=== PATIENT | female | born 1970 | race Two or more races ===

== ENCOUNTER 2024-10-19 07:13 | Emergency (ER) | payer OTHER ==
[~2024-10-19] VITALS: Ht 167.6 cm; Wt 64.4 kg
[2024-10-19] MEDS ORDERED: METHYLPREDNISOLONE SOD SUCC 40 MG VIAL ONE (09:29)
[2024-10-19] MEDS ORDERED: CEFTRIAXONE SODIUM 1,000 MG VIAL ONE (09:29)
[2024-10-19] MEDS ORDERED: FAMOTIDINE/PF 20 MG/2 ML VIAL ONE (09:29)
[2024-10-19 11:03] LABS: HEMATOCRIT 35.4 % (36.0-45.00); HEMOGLOBIN 12.1 g/dL (12.0-15.00); MEAN CELL VOLUME 90.9 fL (80.00-100.00); MEAN CORPUSCULAR HEMOGLOBIN 31.2 pg (27.00-32.0); MEAN CORPUSCULAR HGB CONC 34.3 g/dl (32.0-36.0); PLATELET COUNT 223 K/uL (150-450); RED BLOOD COUNT 3.89 M/uL (4.00-6.00); RED CELL DISTRIBUTION WIDTH 12.7 % (11.5-14.5)
[2024-10-19] MEDS ORDERED: LEVALBUTEROL HCL 1.25 MG/3 ML SOLUTION IH ONE (13:20)
== END 2024-10-19 13:08 | disposition home or self-care (01) ==
LOC: ER 07:15
PROVIDERS: General Practice
DX: J00 Acute nasopharyngitis [common cold] (principal); Z20.822 Contact with and (suspected) exposure to COVID-19